=== PATIENT | female | born 1950 | race Caucasian/White ===

== ENCOUNTER → 2017-09-28 | Outpatient (CLI) | payer OTHER | END | disposition home or self-care (01) | LOC: OLS 14:16 → LAB SHORT 14:16 | PROVIDERS: Nurse Practitioner Women's Health | DX: Z12.4 Encounter for screening for malignant neoplasm of cervix (principal) | CPT/HCPCS: 87624; G0123 ==

== ENCOUNTER 2018-07-10 06:46 | Day surgery (SDC) | payer OTHER ==
[~2018-07-10] VITALS: Ht 167.6 cm; Wt 106.5 kg
[~2018-07-10 06:46] MED LIST: B Complex #11 EACH PO; BENA20; BETA.05TO; Benazepril HCl5 MG PO; CHOL10002 PO; GABA100; GABA100 PO; GLIP10 PO; GLIP10ER PO; GLIP5; HYDCHL12.5 PO; INSULANPEN; INSULANPEN SC; METAMUCIL POWD174 GM; METAMUCIL SUGA283 GM PO; Metformin HCl500 MG; PROBIOTIC1 EAC2 PO; SACC250C PO; TIZANIDINE HCL2 MG PO; TRIA15CR3; UBID10 PO; UBID100 PO; VITAMIN D35000 UNIT PO; [UNRECOGNIZED DRUG - OTHER]
[2018-07-10] MEDS ORDERED: METF500C (07:09)
[2018-07-10] MEDS ORDERED: OSTEO BI-FLEX1 EAC2 (07:09)
--- NOTE | 2018-07-10 07:21 | NUR ---
07/10/[address] AWARE OF PREOP BP. NO ORDERS AT THIS TIME.
--- NOTE | 2018-07-10 08:26 | NUR ---
07/10/18 0826 Merline Means 300CC NACL FLUID DEFICIT FROM HYSTEROSCOPY. SURGEON AWARE.
--- NOTE | 2018-07-10 08:28 | NUR ---
07/10/18 0828 Roberta Gunter PT RESPONDS TO COMMANDS HOWEVER IS NONVERBAL AT THIS TIME.
--- NOTE | 2018-07-10 09:02 | NUR ---
07/10/18 0902 Roberta Gunter ON ARRIVAL TO SDU, PT C/O NAUSEA. PT MEDICATED PER ORDERS PRIOR TO TRANSFER TO RECLINER. AFTER TRANSFER, PT VOMITED BROWN BILE WITH CHUNKS IN IT. PT STATES SHE FEELS BETTER AFTER THROWING UP. PT FURTHER MEDICATED FOR NAUSEA PER ORDERS. VSS AND LUNGS CTA. PT TOLERATING PO CRACKERS AND FLUIDS. COLD WASH CLOTH APPLIED TO FOREHEAD. PT C/O 5/10 HIP PAIN WHICH SHE STATES SHE HAS ALL OF THE TIME, BEFORE THE SURGERY. PT DENIES PAIN MEDICATIONS AT THIS TIME.
== END 2018-07-10 09:51 | disposition home or self-care (01) ==
LOC: ORSCSDS 06:46
PROVIDERS: Obstetrics & Gynecology
PROC: 0UDB8ZX Extraction of Endometrium, Via Natural or Artificial Opening Endoscopic, Diagnostic (ICD-10-PCS; principal; 2018-07-10 07:30)
DX: N84.0 Polyp of corpus uteri (principal); N71.1 Chronic inflammatory disease of uterus; N95.0 Postmenopausal bleeding; E11.22 Type 2 diabetes mellitus with diabetic chronic kidney disease; I12.9 Hypertensive chronic kidney disease with stage 1 through stage 4 chronic kidney disease, or unspecified chronic kidney disease; N18.3 Chronic kidney disease, stage 3 (moderate); Z79.4 Long term (current) use of insulin; Z79.84 Long term (current) use of oral hypoglycemic drugs; Z79.899 Other long term (current) drug therapy; E66.01 Morbid (severe) obesity due to excess calories; Z68.37 Body mass index [BMI] 37.0-37.9, adult
CPT/HCPCS: 82947; 88305; J0690; J1100; J1815; J2405; J2765; J3010; J7120

== ENCOUNTER → 2020-02-24 | Outpatient (CLI) | payer OTHER ==
[~2020-02-24] MED LIST changes: +METF500C; +OSTEO BI-FLEX1 EAC2
[2020-02-24 17:34] LABS: Creatinine, Urine Random 59.4 mg/dL (27.00-270.00)
[2020-02-24 17:38] LABS: Protein, Urine Random 313.6 mg/dL (0.0-11.9)
[2020-02-24 17:40] LABS: Bilirubin, Urine Neg (Neg); Blood, Urine 3+ (Neg); Glucose Qualitative, Urine 1+ (Neg); Ketones, Urine Neg (Neg); Leukocyte Esterase, Urine Neg (Neg); Nitrite, Urine Neg (Neg); Protein, Urine 4+ (Neg); Urobilinogen, Urine NORM (Normal)
[2020-02-24 18:03] LABS: Appearance, Urine Clear (Clear); Color, Urine Yellow (P-Yellow)
[2020-02-24 18:06] LABS: Amorphous Light (0-Heavy); Bacteria Rare /hpf; Mucus Light (0-Heavy); Squamous Epithelial Cells Few /hpf (Few)
== END | disposition home or self-care (01) ==
LOC: LAB SHORT 15:17 → LAB 15:17
PROVIDERS: Internal Medicine
DX: R80.9 Proteinuria, unspecified (principal)
CPT/HCPCS: 81001; 82570; 84156

== ENCOUNTER 2023-05-22 18:04 | Inpatient (IN) | payer OTHER ==
[~2023-05-22] VITALS: Ht 170.2 cm; Wt 109.5 kg
[~2023-05-22 18:04] MED LIST changes: +Benazepril HCl10 MG PO; -Benazepril HCl5 MG PO; -GABA100; -INSULANPEN
[2023-05-22 19:59] LABS: Albumin/Globulin Ratio 0.5 (0.8-1.8); Bilirubin, Total 0.3 mg/dL (0.1-1.0); Creatinine, Blood 6.93 mg/dL (0.40-1.00); Globulin, Blood 5.7 g/dL (2.2-4.0); Potassium, Blood 7.9 mmol/L (3.5-5.5); Total Protein, Blood 8.7 g/dL (6.4-8.2)
[2023-05-22 20:43] LABS: BASOPHILS ABSOLUTE AUTO 0.03 K/mm3 (0.00-0.23); BASOPHILS PERCENT AUTO 0 % (0-2); EOSINOPHILS ABSOLUTE AUTO 0.23 K/mm3 (0.00-0.68); EOSINOPHILS PERCENT AUTO 2 % (0-6); Hematocrit 31.4 % (33.0-51.0); Hemoglobin 9.9 g/dL (11.5-16.0); IMMATURE GRAN ABSOLUTE AUTO 0.05 K/mm3 (0.00-0.10); IMMATURE GRAN PERCENT AUTO 1 % (0-1); LYMPHOCYTES ABSOLUTE AUTO 2.02 K/mm3 (0.84-5.20); LYMPHOCYTES PERCENT AUTO 18 % (21-46); MONOCYTES ABSOLUTE AUTO 1.26 K/mm3 (0.16-1.47); MONOCYTES PERCENT AUTO 11 % (4-13); Mean Corpuscular HGB 29.6 pg (26.0-34.0); Mean Corpuscular HGB Conc 31.5 g/dL (31.5-36.5); Mean Corpuscular Volume 94 fL (80-100); NEUTROPHILS ABSOLUTE AUTO 7.42 K/mm3 (1.96-9.15); NEUTROPHILS PERCENT AUTO 67 % (41-73); RDW Coefficient Variation 15.8 % (11.7-14.2); RDW Standard Deviation 54.4 fL (35.1-46.3); Red Blood Cell Count 3.34 M/mm3 (3.80-5.20); White Blood Cell Count 11.01 K/mm3 (4.00-11.30)
[2023-05-22 20:46] LABS: Platelet Count 389 K/mm3 (150-400)
[2023-05-22 22:46] LABS: Bun/Creatinine Ratio 15.7 (12.0-20.0); Creatinine, Blood 7.08 mg/dL (0.40-1.00); Potassium, Blood 7.8 mmol/L (3.5-5.5)
[2023-05-23] VITALS (11 sets, daily range): BP systolic 95–155; BP diastolic 52–77
[2023-05-23 01:33] LABS: Calcium, Blood 8.7 mg/dL (8.5-10.1); Creatinine, Blood 6.94 mg/dL (0.40-1.00); Potassium, Blood 7.1 mmol/L (3.5-5.5)
[2023-05-23 04:39] LABS: BASOPHILS ABSOLUTE AUTO 0.03 K/mm3 (0.00-0.23); BASOPHILS PERCENT AUTO 0 % (0-2); EOSINOPHILS ABSOLUTE AUTO 0.23 K/mm3 (0.00-0.68); EOSINOPHILS PERCENT AUTO 3 % (0-6); Hematocrit 26.1 % (33.0-51.0); Hemoglobin 8.3 g/dL (11.5-16.0); IMMATURE GRAN ABSOLUTE AUTO 0.04 K/mm3 (0.00-0.10); IMMATURE GRAN PERCENT AUTO 0 % (0-1); LYMPHOCYTES PERCENT AUTO 20 % (21-46); MONOCYTES ABSOLUTE AUTO 1.21 K/mm3 (0.16-1.47); MONOCYTES PERCENT AUTO 13 % (4-13); Mean Corpuscular HGB 29.3 pg (26.0-34.0); Mean Corpuscular HGB Conc 31.8 g/dL (31.5-36.5); Mean Corpuscular Volume 92 fL (80-100); Mean Platelet Volume 8.9 fL (9.1-12.4); NEUTROPHILS PERCENT AUTO 63 % (41-73); Platelet Count 287 K/mm3 (150-400); RDW Coefficient Variation 15.2 % (11.7-14.2); RDW Standard Deviation 51.3 fL (35.1-46.3); Red Blood Cell Count 2.83 M/mm3 (3.80-5.20); White Blood Cell Count 9.31 K/mm3 (4.00-11.30)
[2023-05-23 05:06] LABS: Albumin, Blood 2.4 g/dL (3.4-5.0); Albumin/Globulin Ratio 0.5 (0.8-1.8); Bilirubin, Total 0.3 mg/dL (0.1-1.0); Bun/Creatinine Ratio 15.9 (12.0-20.0); Calcium, Blood 8.4 mg/dL (8.5-10.1); Creatinine, Blood 6.74 mg/dL (0.40-1.00); Globulin, Blood 4.6 g/dL (2.2-4.0)
--- NOTE | 2023-05-23 07:00 | NUR ---
REPORT RECEIVED FROM CHARLI Borrego RN. ASSUMED CARE OF THIS PT AT APPROX 0700.
[2023-05-23 09:56] LABS: Iron Serum 17 ug/dL (50-170); Percent Saturation 7.7 % (15.0-50.0); Total Iron Binding Capacity 221 ug/dL (250-450)
[2023-05-23 09:59] LABS: Calcium, Blood 7.3 mg/dL (8.5-10.1); Creatinine, Blood 5.92 mg/dL (0.40-1.00); Potassium, Blood 6.4 mmol/L (3.5-5.5)
[2023-05-23 10:00] LABS: Albumin, Blood 2.1 g/dL (3.4-5.0); Anion Gap 4 mmol/L (6-16); Blood Urea Nitrogen 95 mg/dL (8-24); CO2, Blood 24 mmol/L (21-32); Calcium, Blood 7.4 mg/dL (8.5-10.1); Chloride, Blood 111 mmol/L (98-108); Creatinine, Blood 5.93 mg/dL (0.40-1.00); Glomerular Filtration Rate 7 (60-); Glucose, Blood 127 mg/dL (70-99); Phosphorus, Blood 5.5 mg/dL (2.5-4.9); Potassium, Blood 6.5 mmol/L (3.5-5.5); Sodium, Blood 139 mmol/L (136-145)
[2023-05-23 10:33] LABS: Source, Urine Clean Catch
--- NOTE | 2023-05-23 10:41 | NUR ---
RETURN CALL TO GIRISH ROSSI's CAREGIVER/ FRIEND W/ AN UPDATE. PALLIATIVE RNLUISA AT BEDSIDE CURRENTLY DISCUSSING POC W/ PT. FLO [phone]
[2023-05-23 10:56] LABS: Appearance, Urine Clear (Clear); Bilirubin, Urine Neg (Neg); Blood, Urine Neg (Neg); Color, Urine Yellow (P-Yellow); Glucose Qualitative, Urine Neg (Neg); Ketones, Urine Neg (Neg); Leukocyte Esterase, Urine Neg (Neg); Nitrite, Urine Neg (Neg); Protein, Urine 2+ (Neg); Urobilinogen, Urine NORM (Normal)
[2023-05-23 12:15] LABS: Bacteria Few /hpf; Red Blood Cells, Urine 0-2 /hpf (0-2); Squamous Epithelial Cells Few /hpf (Few); White Blood Cells, Urine 0-2 /hpf (0-5)
--- NOTE | 2023-05-23 14:54 | NUR ---
Code Status Order Telephone order received from Dr. Oconnor to change pt to DNR/DNI with limited medical interventions. Order placed. Primary RN notified.
--- NOTE | 2023-05-23 15:09 | NUR ---
Goals of Care, Palliative Care Visit Called to ER RM 8 by Primary RN. Pt's kidney's are poorly functioning with GFR of 6. ARF on CKD STG 2 (baseline). POLST form filled out with pt to reflect DNR with limited medical interventions. POLST pending provider signature. Hanane declined comfort care and stated, "I need to live for my cat. She is an old girl and shy. She doesn't trust anyone". Hanane reminisced about saving "Baby" when she was a kitten. Baby is a 20 pound, 12 year old and is pt's best friend. Hanane self proclaims to be a "loner". Pt is ordering groceries online and picks them up at the store. "I haven't really gone out since the pandemic. With my diabetes, I am a target." Pt denies depression. "I'm just Lazy". Eating ready made freezer meals. Using a walker for steadiness. Last fall 2 mts ago. Hanane is adamant she does NOT want out patient dialysis. She states she will entertain the idea of a one time dialysis tx if needed. Estranged from dtr for the last 20 years. Estranged from her only living sibling (brother) the last several years. Only contact is friend/caregiver, Milady. Per Hanane, it is okay to give Milady information/updates. Milady to bring in pt's glasses. Glasses are for distance.
--- NOTE | 2023-05-23 16:45 | NUR ---
TRANSFER TO ICU: THIS RN HAS TRANSFERRED PT TO ICU-08 FROM ED AT APPROX 1417. THIS RN WILL TRANSFER W/ THE PT TO CONTINUE PROVIDING CARE. PT A&O TO ALL, COOPERATIVE W/ CARE. LS DIM IN BASES, ON 2L NC W/ O2 SATS > 95%, DESATS TO 89% NOTED ON RA. MONITOR SHOWS SR W/ HR 60-70s, BP STABLE. PT HAS NO GI COMPLAINTS. URINARY STRAIGHT CATH COMPLETED IN ED FOR RETENTION W/ 600 ML UO. PT DENIES NEED TO VOID SINCE THAT TIME. SKIN CONDITION OVERALL FRAGILE, DRESSINGS TO BLE HAVE BEEN CHANGED & WOUNDS CLEANSED. SKIN IS NOTED TO BE THICKENED & SCALING W/ SOME OPEN AREAS NOTED. REDRESSED W/ MAXSORB & CURLEX, DRYFLOW PADS PLACED UNDER LEGS FOR WEEPING. Q2H REPOSITIONING TO MAINTAIN SKIN INTEGRITY. WILL CONTINUE TO MONITOR & UPDATE NEEDED.
[2023-05-23 18:52] LABS: Bun/Creatinine Ratio 15.2 (12.0-20.0); Creatinine, Blood 6.84 mg/dL (0.40-1.00); Potassium, Blood 6.9 mmol/L (3.5-5.5)
[2023-05-23 18:59] LABS: Free Thyroxine 0.93 ng/dL (0.70-1.60)
[2023-05-23 19:00] LABS: Thyroid Stimulating Hormone 1.69 uIU/mL (0.360-4.800); Triiodothyronine, Free 1.18 pg/mL (2.18-3.98)
--- NOTE | 2023-05-23 19:00 | NUR ---
ASSUMED CARE ASSUMED CARE OF PATIENT. AWAKE AND ALERT. ORIENTED TO SELF, PLACE, SITUATION, AND TO MONTH/YEAR. FLAT AFFECT NOTED. PT IS IRRITABLE BUT IS COOPERATIVE WITH CARE. C/O FEELING LIKE SHE NEEDS TO URINATE BUT HAS BEEN UNABLE- WILL ATTEMPT BEDPAN AGAIN. NS INFUSING AT 125MLS/HR PER ORDER. BLE WITH DRSGS INTACT- SMALL AMOUNT OF REDDISH DRAINAGE NOTED. SEE SHIFT ASSESSMENT FOR FULL ASSESSMENT.
--- NOTE | 2023-05-23 21:00 | NUR ---
URINE RETENTION PT HAS ATTEMPTED TO VOID TWICE WITHOUT SUCCESS. BLADDER SCAN DONE- >200MLS. AFTER DISCUSSING WITH PATIENT AND WITH PT C/O OF PAIN/DISCOMFORT D/T NOT BEING ABLE TO VOID, DECISION WAS MADE TO PLACE CATHETER. MERRITT CATHETER PLACED WITH MODERATE DIFFICULTY D/T SIZE AND PRESENT EXCORIATION.
--- NOTE | 2023-05-23 22:22 | NUR ---
REFUSING CARE PT IS UPSET AND COMPLAINING THAT WE ARE HURTING HER. SHE STATES THAT SHE JUST WANTS TO "GO HOME AND ." INSISTS THAT MERRITT CATHETER BE DC'D DESPITE REMINDER THAT SHE HAD BEEN RETAINING URINE AND WAS UNCOMFORTABLE FROM THAT. ALSO REFUSING TO WEAR SAT PROBE, DESPITE EDUCATION.
--- NOTE | 2023-05-23 22:40 | NUR ---
REFUSING CARE PT CONTINUES TO REFUSE MOST CARE. WILL NOT LEAVE BP CUFF OR TELEMETRY LEADS ON. CONTINUES TO STATE THAT SHE JUST WANTS TO GO HOME AND . CHARLI MARTINEZ NP, NOTIFIED OF PATIENTS WISHES.
--- NOTE | 2023-05-23 23:40 | NUR ---
STATUS CHANGE DISCUSSED PT'S REFUSAL OF ALL TREATMENT WITH DR. ANNA. NEW ORDER TO CHANGE PT TO MEDICAL STATUS AT THIS TIME.
--- NOTE | 2023-05-24 03:30 | NUR ---
UPDATE PT CONTINUES TO REFUSE MOST CARE. REFUSES LAB DRAW. REFUSES REPOSITIONING. REFUSES TELEMETRY/BP/O2 SAT MONITORING. NO URINE VOID SINCE RENÉ FU.
--- NOTE | 2023-05-24 06:16 | NUR ---
SHIFT SUMMARY PT HAS CONTINUED TO REFUSE CARE T/O NOC. CONTINUES TO STATE THAT SHE JUST WANTS TO "GO HOME AND ." STATES SHE IS LEAVING TODAY REGARDLESS OF WHAT THE DOCTORS SAY. PT CHANGED TO MEDICAL STATUS EARLIER IN SHIFT. REFUSING ALL BLOOD DRAWS, REPOSITIONING, AND OTHER TREATMENTS. HAS ALLOWED NS TO CONTINUE AT 125MLS/HR. PT HAS NOT VOIDED SINCE MERRITT WAS REMOVED. REFUSES BLADDER SCAN WHEN OFFERED. SOCIAL SERVICE CONSULT PLACED TO DETERMINE NEXT STEPS IN PT'S CARE.
[2023-05-24 08:20] LABS: Hematocrit 23.8 % (33.0-51.0); Hemoglobin 7.5 g/dL (11.5-16.0); Mean Corpuscular HGB 29.5 pg (26.0-34.0); Mean Corpuscular HGB Conc 31.5 g/dL (31.5-36.5); Mean Corpuscular Volume 94 fL (80-100); Mean Platelet Volume 9.4 fL (9.1-12.4); Platelet Count 267 K/mm3 (150-400); RDW Coefficient Variation 15.5 % (11.7-14.2); RDW Standard Deviation 53.5 fL (35.1-46.3); Red Blood Cell Count 2.54 M/mm3 (3.80-5.20); White Blood Cell Count 10.51 K/mm3 (4.00-11.30)
[2023-05-24 08:44] LABS: Bun/Creatinine Ratio 15.8 (12.0-20.0); Calcium, Blood 7.8 mg/dL (8.5-10.1); Creatinine, Blood 6.41 mg/dL (0.40-1.00)
[2023-05-24 08:46] LABS: Potassium, Blood 6.5 mmol/L (3.5-5.5)
--- NOTE | 2023-05-24 10:05 | NUR ---
0800 Assumed care of patient Patient is alert and oriented to self, situation, place and year but not to date. She is reluctant to treatment and care this morning. She does not want to be repositioned at this time. She was made medical status over night. She is moving her upper extremeties but her lower extremeties are extremely weak and painful to any type of activity passive or active. Patient has kerlex around bilat. lower extremeties, cap refill on toes are less than 3 and warm to touch. She has positive pulses palpable to all extremeties. Her pulse is regular at 87. She is at 88% on room air and is refusing to have oxygen on at this time. Patient has 2 piv's with ns going at 125/hr she is on the third bag of fluid since it was ordered. Will try and do care as pt allows.
--- NOTE | 2023-05-24 11:31 | NUR ---
Spiritual care visit conducted. Per patient's request, I visit pt with Palliative Care RN Chelo. Patient immediately tells me that her number one goal is that she wants to be left alone. She tells me that "nothing" is getting her through each day. We did see some smiles from the patient when talking about her 20 pound cat named "Baby Cat." She voices with great clarity about her intention toward wanting to go home on hospice and her disinterest in further medical care. Patient states that her Religious cale is not of much value to her but with Chelo's support allowed for prayer to be said for her. I provide therapeutic listening and prayer. Patient showed small indications of increased peace. I will continue to remain available to patient.
--- NOTE | 2023-05-24 13:48 | NUR ---
Goals of Care, Supportive Visit Received call from ICU chief pharmacistRogelio with concerns of pt refusing cares, her removing tele leads and anything for vital sign monitoring. During the night Hanane did not tolerate crocker cath well and requested the crocker cath be d/c'd. This PC RN met with Primary RN, Uriah and chief pharmacist, Rogelio prior to seeing pt. Hanane is known to this manual writer as we had a great raport while she was in the ED yesterday 05/23/23. Upon entering pt's room she is lying supine with her head elevated apx 45*. She appears comfortable with eyes closed. Hanane responded to verbal stimuli. This PC RN recapped our conversation while in the ED about her code status. Hanane had chosen to be DNR/DNI with limited medical intervention as she wanted a "tune up" so she could take care of her cat and make end of life arrangements. Today she repeats herself multipule times, "I just want to go home and ". Attempted to redirect Hanane to her immediate care needs. She continues to decline medical care or monitoring. Hanane was educated on the repercussions of stopping medical care. "I want to go home and ." Educated pt on unsafe discharge since there isn't anyone to care for Hanane at home. Pt states, "I don't care." Education on medical care vs comfort care provided. Hanane elected for comfort care. Notified Dr. Oconnor of pt's wish to be on comfort care. Dr. Oconnor is agreeable with pt wish and will be placing comfort care orders. Primary RN notified of above stated information. Phone call to friendMilady with update. Milady will be in to see pt around 1100. Primary RN will call this RN when Milady arrives to have a conversation with a patient and friend at bedside.
--- NOTE | 2023-05-24 14:20 | NUR ---
1400... Hanane is making comments that she thinks she is in her appartment watching [place] and is wondering where he cat is. She is not sure of place now but is appropriate to month and year when asked. She is being reoriented. Bruce placed pt stating she wanst to urinate but is not getting out of bed and is not wanting to reposition to get on a bedpan. Friend from where she lives came in to visit her.
--- NOTE | 2023-05-24 15:52 | NUR ---
UPDATE THIS AFTERNOON. REQUESTED FOR PALLIATIVE CARE TO COME TO ROOM SINCE THE HORSE RACE STARTER WAS COMING TO SET UP REQUEST WITH PT. PHILIP VERA RN PALLIATIVE CARE HELPED WITH THE PROCESS WITH THE FRIEND FLO. PT WAS ASKED IF SHE COULD BE REPOSITIONED AND SHE DENIED TO MOVE. SHE IS LAYING ON HER RIGHT SIDE WITH PILLOWS BEHIND HER. PURWICK STILL IN PLACE WITH SMALL AMOUNTS OF URINE OUT FROM IT. LETTING PT REST AT THIS TIME.
--- NOTE | 2023-05-24 16:00 | NUR ---
Friend at bedside, Supportive Visit Met with pt and her friend Milady at pt's bedside. Reviewed pt's wishes with friend. Pt confirmed wishes for comfort care. Friend told pt that she has found a home for "Baby Cat" with an elder adult that is also a home body and they are aware of how skitish Baby Cat is. Friend endorses pt's cat will have a very loving home. This RN provided Milady with a home list as Hanane does not have a prefernce. Hanane states, "The state can take care of me. Just throw me in the wind." Milady is very overwhelmed. Provided theraputic listening and validation of feelings. This RN praised Milady for being such a good friend and taking on Hanane's final arrangements. Milady met Oak when she was hired to clean pt's home. She is not a personal care aid. Milady will contact this PC RN if she has any questions or concerns.
--- NOTE | 2023-05-24 16:20 | NUR ---
Telephone orders Dr. Oconnor to d/c routine medications, future testing. 05/24/23 @ 5022.
--- NOTE | 2023-05-24 16:24 | NUR ---
Umbrella Repairer at bedside for pre-arrangements as requested by Milady. Lopez from [facility] is at pt's bedside to review pt's demographic information and post mortem wishes. Hanane is A/O X4. She was able to correctly tell Umbrella Repairer her name and spell it. Also confirmed her , SS#, place of , current address and phone number. Friend shows signs of relief that Hanane was able to be A/O enough to take care of the post mortem arrangements. Hanane was jovial during this visit. She was telling Milady whom gets what of her belongings. Will remain available for support.
--- NOTE | 2023-05-24 16:55 | NUR ---
TRANSFER PATIENT TRANSFERING TO MEDICAL FLOOR ROOM 338. GAVE REPORT TO MED FLOOR RN TO RESUME CARE.
--- NOTE | 2023-05-24 17:29 | NUR ---
PT ARRIVED TO THE MEDICAL FLOOR FROM THE ICU VIA BED. PT REPOSITIONED AND ORIENTED TO THE CALL SYTEM. THE PT STATED THAT SHE JUST WANTED TO . PT OFFERED PAIN MEDICATION BUT DECLINED AT THIS TIME. CALL LIGHT IN REACH. BED IN THE LOW POSITION
[2023-05-24] MEDS ORDERED: SYNTHROID25 M12 PO (19:16)
--- NOTE | 2023-05-25 06:18 | NUR ---
SHIFT SUMMARY NOC PT A/O X 4. PLEASANT AND COOPERATIVE WITH CARE. PT PUT ON COMFORT CARE MEASURES YESTERDAY. PT HAS NOT HAD C/O OF PAIN AND JUST WANTS TO SLEEP. PUREWICK IN PLACE FOR COMFORT. PT WILL BE DISCHARGED ONCE HOME HOSPICE IS SET UP. PT IS CURRENTLY RESTING WITH BED IN LOWEST POSITION, AND CALL LIGHT WITHIN REACH.
--- NOTE | 2023-05-25 07:25 | NUR ---
Friend Ratna Ratliff [phone] called this morning to check on pt. Ratna is in a state of disbelief. She reports Hanane has "always been stubborn". Ratna expressed she is not surprised about Hanane's condition or the fact Hanane is refusing care.
--- NOTE | 2023-05-25 08:00 | NUR ---
pt laying in bed awake a/ox3, pleasant and cooperative with care, reports no pain, lungs are clear, dim in bases, resp even and unlabored at rest, on r/a, no cough noted, hrr, edema noted to b/l legs with wraps on both le, briefs in place for incont, total care, call light in reach.
--- NOTE | 2023-05-25 10:58 | NUR ---
pt states she doesn't want to be turned due to pain, medicated with roxinol, will turn and change after takes affect, call light in reach.
--- NOTE | 2023-05-25 12:41 | NUR ---
pt states she's doing ok, Dr. Oconnor came in to see her, and answer her questions, states the pain meds helped some. call light in reach.
--- NOTE | 2023-05-25 15:47 | NUR ---
Pt resting w/o s/sx of distress. She denies pain. Resp even unlabored. Pt is able to make needs known. This RN assisted pt in making a phone call to her friend/emergency contact. Jamin would like Milady and Ratna notified at the time of her passing. Jamin has arrangements set with [facility]. Report provided to Brea MCALLISTER.
--- NOTE | 2023-05-25 17:27 | NUR ---
PT PLEASANT WHEN TALKED TO. DID WELL WITH 5 MG MORPHINE PRIOR TO TURN AND BED BATH. SHE TALKING SOME ABOUT HER 20# CAT. REMINDED HER TO CALL IF NEEDS PAIN MEDICATION. OR ANYTHING ELSE THAT SHE MIGHT WANT. NO NEW CONCERNS TODAY. BED IN LOW POSITION, CALL LITE IN REACH, CALLS APPROP
--- NOTE | 2023-05-26 05:56 | NUR ---
SHIFT SUMMARY NOC PT A/O X 3. ON COMFORT CARE. PT HAS REFUSED REPOSITIONING AND PAIN RX THUS FAR. THE ONLY REQUEST PT HAS HAD IS FOR ICE WATER. PT ALSO IS CONCERNED ABOUT HER CAT AT HOME. PT HAS PUREWICK IN PLACE FOR COMFORT. ALSO LLE WOUND THAT IS WEEPING, DRESSING IN PLACE AND PAPER PAD UNDERNEATH. PT HAS BEEN RESTING COMFORTABLY THROUGHOUT SHIFT. PT IS WAITING ON DISCHARGE PLANNING FOR PLAN GOING FORWARD FOR HOSPICE. PT IS CURRENTLY RESTING WITH BED IN LOWEST POSITION, AND CALL LIGHT WITHIN REACH.
--- NOTE | 2023-05-26 17:57 | NUR ---
DAYSHIFT SUMMARY Patient alert, oriented x2-3. Patient appears tearful and complaints of pain, declined pain meds, but allowed RN to give morphine x1 this shift. Repositioned Q2H. BLE dressings saturated with purulent exudation, strong fould odor noted. Applied new dressings. Will continue plan of care.
--- NOTE | 2023-05-27 04:34 | NUR ---
SHIFT SUMMARY PT A&O X3, RESTING COMFORTABLY IN BED. EXPRESSES PAIN WHEN MOVED OR REPOSITIONED. PT REFUSED REPOSITIONING AT TIMES DURING THE NIGHT AND STATED "SHE IS COMFORTABLE". PT REFUSED ANY PAIN MEDICATIONS. DRESSINGS ON LEGS DUE TO SORES AND DRAINAGE. PT HAS DISCOLORING WITH DRY FLAKING SKIN THAT HAS A FOUL SMELL. PUREWICK IN PLACE DRAINING YELLOW URINE. BED KEPT IN LOWEST POSITION WITH CALL LIGHT WITHIN REACH. WILL CONTINUE TO MONITOR.
--- NOTE | 2023-05-27 16:57 | NUR ---
DAYSHIFT SUMMARY Patient alert & oriented, resting in bed. C/o airhunger, PRN morphine given. PRN effective. Repositioned with pillows, changed dressings on BLE. Patient had poor intake. Requests water to drink but declines meal trays. Will continue comfort care interventions, awaiting discharge planning.
--- NOTE | 2023-05-28 04:48 | NUR ---
SHIFT SUMMARY PT A&O, COOPERATIVE WITH CARE. PT COMPLAINED OF DYSPNEA, ELEVATED HOB, MEDICATED PER EMAR. CHANGED BANDAGES TO BLE, MODERATE EXUDATE. PT DENIES PAIN EXCEPT WHEN NEEDED TO BE MOVED AND REPOSITONED. SEVERE PAIN WITH LEG MOVEMENT. PUREWICK IN PLACE DRAINING YELLOW URINE. PT HAD NO FOOD INTAKE THIS SHIFT BUT IS TAKING IN SIPS OF WATER. RESPOSITIONED WITH PILLOWS. WILL CONTINUE TO MONITOR UNTIL END OF SHIFT.
--- NOTE | 2023-05-28 18:11 | NUR ---
SHIFT SUMMARY: COMFORT CARE PT. PT ORIENTED TO SELF, PERSON, AND PLACE. LUNG SOUNDS DIMINISHED IN ALL LOBES. PT REFUSING FOOD/DRINKS THIS SHIFT. PT IN PAIN BUT DENIED PAIN MEDICATION. PT AGREED TO BE MEDICATED FOR PAIN PRIOR TO BRIEF CHANGE AND CLEAN UP. PT YELLED OUT IN PAIN REGARDLESS. BILAT LOWER EX WOUNDS FACE SCALE 10/10 PAIN WITH MOVEMENT. WOUND DRESSINGS C/D/I. RED OPEN SORE TO BOTTOM. CREAM APPLIED AND FLOATED WITH PILLOWS. POWDER AND PILLOW CASES PLACE UNDER PANNUS. PUREWICK IN PLACE DRAINING YELLOW URINE. PLAN TO GO HOME WITH HOSPICE POSSIBLY MONDAY. CALL LIGHT IN REACH. BED IN LOWEST POSITION. CURRENTLY RESTING COMFORTABLY IN BED.
--- NOTE | 2023-05-29 04:32 | NUR ---
SHIFT SUMMARY PT A&O TO PERSON, PLACE, AND SELF. PT DENIED ANY FOOF INTAKE BUT DID TAKE IN SMALL SIPS OF WATER AND REQUESTED HOT TEA. PT REPOSITIONED AND FLOATED ON PILLOWS. PT REFUSED POSITIONING AT TIMES AND STATED SHE "IS COMFORTABLE". PT HAS BLE WOUNDS COVERED WITH BANDAGE AND GAUZE C/D/I. PT HAS EXTREME PAIN WITH LEG MOVEMENT. REFUSED ANY PAIN MEDICATION THIS SHIFT. PUREWICK IN PLACE DRAINING YELLOW URINE. BED IN LOWEST POSITION WITH CALL LIGHT WITHIN REACH. WILL CONTINUE TO MONITOR.
--- NOTE | 2023-05-29 11:40 | NUR ---
SCOPALAMINE PATCH PLACED BEHIND PTS L EAR.
--- NOTE | 2023-05-29 12:21 | NUR ---
PILLOWS PLACED UNDER R SIDE. PT TOLERATED WELL SHOOK HEAD YES WHEN ASKED IF SHE WAS COMFORTABLE. ASSESSED DEPENDS, DRY AT THIS TIME. PUREWICK CONTINUES TO FUNCTION WELL. NO OUTPUT.
--- NOTE | 2023-05-29 16:08 | NUR ---
SHIFT SUMMARY, PT HAS BEEN MEDICATED PER EMAR FOR AIR HUNGER/INCREASED W.O.B. OTHERWISE SHE HAS REPORTED NO PAIN. ANSWERING YES/NO QUESTIONS AT THIS TIME. CAREGIVER BROUGHT IN PATIENTS CAT TO VISIT. PT HAPPY WITH VISIT AND RELAXED AFTER VISIT. THEY HOPE TO BRING BACK IN CAT TOMORROW. REPOSITINING PATIENT SHE TOLERATES.
--- NOTE | 2023-05-30 05:57 | NUR ---
Shift Summary Pt somnolent and lethargic this shift, mostly sleeping and unresponsive when awake. She has very coarse lungs and heavy secretions, I suctioned what I could and was able to remove a moderate amount. Given PRN roxinol for air hunger, pt gasping for air at times. Purewick in place, attends dry. Very little urine output.
--- NOTE | 2023-05-30 07:57 | NUR ---
pt heart stopped at 0745. sergo rn at bedside to verify. dr. ruiz notified. friends listed in chart were notified as requested. zuly, friend, will pharmacy picking tech pt belongings.
--- NOTE | 2023-05-30 11:19 | NUR ---
LATE ENTRY- DURING RN REPORT AT SHIFT CHANGE PT SEVERE AIR HUNGER AND COPIOUS DRAINAGE FROM NOSTRIL. MEDICATED PER EMAR.
--- NOTE | 2023-05-30 14:39 | NUR ---
Comfort Care Supportive Visit Hanane is obtunded. No S/Sx of distress. Read a supportive passage to pt. Returned phone call to Milady, friend. Theraputic listening provided. Gentle education surrounding end of life changes provided to Milady. She has no futher questions.
== END 2023-05-30 07:45 | DRG 682 ==
LOC: ER 18:04 → MEDS 21:59 → ERHOLD 21:59 → ICUE 21:59 → MEDS 05-24 17:18
PROVIDERS: Hospitalist; Internal Medicine; Student in an Organized Health Care Education/Training Program; ADMIT Internal Medicine
DX: N17.0 Acute kidney failure with tubular necrosis (principal); G04.91 Myelitis, unspecified; E87.21 Acute metabolic acidosis; Z51.5 Encounter for palliative care; E11.49 Type 2 diabetes mellitus with other diabetic neurological complication; E87.5 Hyperkalemia; E11.40 Type 2 diabetes mellitus with diabetic neuropathy, unspecified; I12.9 Hypertensive chronic kidney disease with stage 1 through stage 4 chronic kidney disease, or unspecified chronic kidney disease; E11.22 Type 2 diabetes mellitus with diabetic chronic kidney disease; N18.30 Chronic kidney disease, stage 3 unspecified; E66.01 Morbid (severe) obesity due to excess calories; R60.0 Localized edema; N13.30 Unspecified hydronephrosis; N20.0 Calculus of kidney; D50.9 Iron deficiency anemia, unspecified; Z68.39 Body mass index [BMI] 39.0-39.9, adult; Z28.21 Immunization not carried out because of patient refusal
CPT/HCPCS: 36415; 51701; 51703; 51798; 74176; 80048; 80053; 80069; 81001; 82947; 83540; 83550; 83605; 84439; 84443; 84481; 85025; 85027; 93005; 93010; 94762; 96365; 96366; 96366-59; 96368; 96375; 96375-59; 96376-59; 99285-25; A9270; J0612; J1644; J1815; J2405; J7030; J7070